=== PATIENT | male | born 1945 | race Caucasian/White ===

== ENCOUNTER 2018-04-25 20:39 | Emergency (ER) | payer OTHER ==
--- NOTE | 2018-04-25 20:51 | Emergency Department Record ---
History of Present Illness - General Chief Complaint: Code Adult Stated Complaint: LOC,NOT BREATHING Time Seen by Provider: 04/25/18 20:46 Source: Family, EMS Mode of Arrival: EMS Limitations: Altered mental status, Other (Intubated Cardiac arrest) - History of Present Illness Initial Comments: 72 yo male presents to the ED if full cardiac arrest. The patient was found on the front porch by his . He had been outside for about 5-10 minutes and was found blue and unresponsive by his . A neighbor started CPR. EMS was called to the scene. He was found in asystole. CPR had been initiated by a bystander neighbor. He was intubated. There was no pulse, respirations, or shockable rhythm. The patient receive 4 dose of epinephrine without return of spontaneous rhythm. He remained in PEA or asystole during the prehospital phase. On arrival he was in asystole. Additional CPR and Epi given. He remained in asystole. No palpable pulses in the ED. No spontaneous respirations. He is a patient of the [facility] Complaint: Collapsed during activity -: Minute(s) (55) Place: Home Bystander CPR Performed: Yes (Non witnessed arrest) AED Applied by Bystander/Oil Refinery Operator: Yes Shock Advised: No Downtime Before ACLS Arrival (mins): 3 Initial Findings in the Field: No respirations, Unresponsive, No pulse, Asystole Associated Injuries: No Treatments Prior to Arrival: Chest compressions, Intubation, Epinephrine mgs # ( 4+) - [place] Coma Scale Eye Response: (1) No response Motor Response: (1) No motor response Verbal Response: (1) No verbal response [place] Total: 3 - Related Data Home Medications Medication Instructions Recorded Confirmed Last Taken Aspirin [Aspirin EC] 81 mg PO DAILY 04/25/18 04/25/18 Unknown Finasteride [Proscar] 5 mg PO DAILY 04/25/18 04/25/18 Unknown Furosemide [Lasix] 20 mg PO DAILY 04/25/18 04/25/18 Unknown Gabapentin [Neurontin] 300 mg PO QHS 04/25/18 04/25/18 Unknown Inv-Allopurinol / Placebo 1 tab PO ASDIR 04/25/18 04/25/18 Unknown Lisinopril [Zestril] 10 mg PO DAILY 04/25/18 04/25/18 Unknown [place]-3/Dha/Epa/Fish Oil [Fish Oil 1 each PO DAILY 04/25/18 04/25/18 Unknown 1,200 mg Softgel] Omeprazole [Prilosec] 20 mg PO DAILY 04/25/18 04/25/18 Unknown Rosuvastatin Calcium 5 mg PO ASDIR 04/25/18 04/25/18 Unknown Tamsulosin HCl [Flomax] 0.4 mg PO DAILY 04/25/18 04/25/18 Unknown Review of Systems ROS unobtainable: Due to endotracheal tube Physical Exam - General General Appearance: Other (Apneic,pale, no movement, no spontaneous respirations ) Limitations: Altered mental status - Head Head exam: Atraumatic, Normal inspection - Eye Eye exam: Other (fixed). negative: Normal appearance - ENT ENT exam: Mucous membranes moist (small amount of mucous in the mouth) Mouth exam: Normal external inspection - Neck Neck exam: Normal inspection - Respiratory Respiratory exam: Normal lung sounds bilaterally (Bilateral clear breath sounds with bagging. No respiratory effort spontaneously) - Cardiovascular Cardiovascular Exam: Other (No heart sounds auscultated). negative: Regular rate, Normal rhythm, Normal heart sounds, Bradycardia Peripheral Pulses: 0: Radial (R), Radial (L) - GI/Abdominal GI/Abdominal exam: Soft - Extremities Extremities exam: Normal inspection - Neurological Neurological exam: Altered (No response) - Skin Skin exam: Cyanosis Course - Reevaluation(s) Reevaluation #1: On arrival the patient was intubated with CPR in progress. No spontaneous movement, respirations or pulse. He was in asystole on the monitor. He had bilateral breath sounds. He had femoral pulses only with CPR and none without chest compressions. Additional epinephrine given in the ED with continued CPR. glucose was 255 just prior to arrival per EMS. After 7 minutes in the ED without a pulse or rhythm the code was called at 2042. His time without ROSC at this point exceeded 46 minutes with a scene time reported of 19:56 and an unwitnessed arrest where he was not seen for 5-10 minutes. Continuing efforts at this stage was deemed futile and the code was called. 04/25/18 04/25/18 21:13 EMR reviewed No prior visits to [facility] on EMR The [place] Examiner is in the ED for evaluation 04/26/18 08:03 Disposition Disposition: Other Clinical Impression: Cardiac arrest, Disposition: / Forms: Patient Portal Access Time of Disposition: 21:04 Quality - Quality Measures Quality Measures: N/A - Blood Pressure Screening Does Patient Have Any of the Following: Active Dx of HTN Systolic Measurement: ~ Screening for High Blood Pressure: Patient Exclusion, Hx of HTN [[id number]]
== END 2018-04-26 00:47 | disposition expired ==
LOC: ER 20:39
DX: I46.9 Cardiac arrest, cause unspecified (principal); I10 Essential (primary) hypertension; E11.9 Type 2 diabetes mellitus without complications; Z79.4 Long term (current) use of insulin
CPT/HCPCS: 92950; 96374; 99285; 99291